=== PATIENT | male | born 1955 | race Caucasian/White ===

== ENCOUNTER 2016-06-29 11:42 | Emergency (ER) | payer SELFPAY | END 2016-06-29 11:44 | disposition home or self-care (01) | LOC: ER 11:42 | DX: M54.5 Low back pain (principal); I10 Essential (primary) hypertension; E78.5 Hyperlipidemia, unspecified; F17.200 Nicotine dependence, unspecified, uncomplicated | CPT/HCPCS: 72100; 99283; A9270-GY; J2360 ==